=== PATIENT | male | born 1980 | race Caucasian/White ===

== ENCOUNTER 2018-11-15 19:42 | Emergency (ER) | payer SELFPAY ==
[~2018-11-15] VITALS: Ht 177.8 cm; Wt 72.6 kg
[2018-11-15] MEDS ORDERED: DOXYCYCLINE 100 MG (VIBRAMYCIN) TABLET PO ONE (20:15)
[2018-11-15] MEDS ORDERED: DOXY100T2 PO (20:16)
--- NOTE | 2018-11-15 20:16 | ED General ---
General Chief Complaint: Bite-Animal/Human/Insect Stated Complaint: INSECT BITE History of Present Illness Date Seen by Provider: Nov 15, 2018 Time Seen by Provider: 20:05 Initial Comments 38-year-old male who sustained a tick bite to his right knee region while in [place] approximate 5 days ago presents with some redness and tenderness at the site of the tick removal as well as some myalgias and sore throat. No documented fever. No rashes reported. He is concerned about possible tickborne disease. No other medical problems reported. Allergies and Home Medications Patient Home Medication List Home Medication List Reviewed: Yes Review of Systems Review of Systems Constitutional: No fever; malaise, weakness EENTM: see HPI Respiratory: no symptoms reported Cardiovascular: no symptoms reported Gastrointestinal: no symptoms reported Genitourinary: no symptoms reported Musculoskeletal: joint pain Skin: see HPI Psychiatric/Neurological: No Symptoms Reported Hematologic/Lymphatic: No Symptoms Reported Past [id number]-[id number] Hx Past Med/Social Hx: Reviewed Nursing Past Med/Soc Hx Patient Social History Recent Foreign Travel: Yes (Y) Physical Exam Vital Signs Capillary Refill : Height, Weight, BMI Height: '" Weight: lbs. oz. kg; BMI Method: General Appearance: No Apparent Distress, WD/WN, Anxious Eyes: Bilateral Eye Normal Inspection, Bilateral Eye PERRL, Bilateral Eye EOMI HEENT: PERRL/EOMI, TMs Normal, Normal ENT Inspection, Pharynx Normal, Moist Mucous Membranes Neck: Full Range of Motion, Normal Inspection, Non Tender, Supple, Carotid Bruit Respiratory: Chest Non Tender, Lungs Clear, Normal Breath Sounds, No Accessory Muscle Use, No Respiratory Distress Cardiovascular: Regular Rate, Rhythm, No Edema, No Gallop, No JVD, No Murmur, Normal Peripheral Pulses Gastrointestinal: Normal Bowel Sounds, No Organomegaly, No Pulsatile Mass, Non Tender, Soft Back: Normal Inspection, No CVA Tenderness, No Vertebral Tenderness Extremity: Normal Capillary Refill, Normal Inspection, Normal Range of Motion, Non Tender, No Calf Tenderness, No Pedal Edema Neurologic/Psychiatric: Alert, No Motor/Sensory Deficits Skin: Normal Color, Warm/Dry, Other (punctate lesion on right distal knee) Lymphatic: No Adenopathy Progress/Results/Core Measures Suspected Sepsis SIRS Temperature: Pulse: Respiratory Rate: Blood Pressure / Mean: Results/Orders Vital Signs/I&O Capillary Refill : Progress Note : Time: 20:13 Progress Note We discussed empiric treatment for tick borne disease versus lab testing. He states he does not plan to follow up with primary care unless symptoms worsen. He prefers empiric treatment. I explained the risk of this decision and he understands and accepts. Departure Impression Primary Impression: Tick bite of lower leg Qualified Codes: S80.861A - Insect bite (nonvenomous), right lower leg, initial encounter; W57.XXXA - Bitten or stung by nonvenomous insect and other nonvenomous arthropods, initial encounter Disposition: HOME, SELF-CARE Condition: Stable Departure-Patient Inst. Decision time for Depature: 20:15 Referrals: NO,LOCAL PHYSICIAN (PCP/Family) Primary Care Physician 2-3 days, sooner if not improved Patient Instructions: Insect Bites and Stings Scripts Doxycycline Hyclate (Doxycycline Hyclate) 100 Mg Tablet 100 MG PO BID for 14 Days, #28 TAB Prov: HODA HEATH MD 11/15/18 HODA HEATH MD Nov 15, 2018 20:16
[2018-11-15] MEDS ORDERED: DOXYCYCLINE 100 MG (VIBRAMYCIN) TABLET ONE (20:21)
[2018-11-15 20:30] VITALS: BP 120/60
== END 2018-11-15 20:30 | disposition home or self-care (01) ==
LOC: ER FS 19:48
DX: S80.861A Insect bite (nonvenomous), right lower leg, initial encounter (principal); W57.XXXA Bitten or stung by nonvenomous insect and other nonvenomous arthropods, initial encounter
CPT/HCPCS: 99283